=== PATIENT | male | born 1965 | race Caucasian/White ===

== ENCOUNTER 2018-01-13 22:54 | Emergency (ER) | payer BC ==
[~2018-01-13 22:54] MED LIST: Sodium Chloride Irrig Solution 250 ML BOT ONE; Triple Antibiotic Oint 1 GM Packet ONE
[2018-01-14] MEDS ORDERED: Adacel (T-DAP) 0.5 ML VIAL ONE (00:27)
[2018-01-14] MEDS ORDERED: Lidocaine 1% w/Epinephrine 1:100K 20 ML VIAL ONE (00:48)
== END 2018-01-14 01:46 | disposition home or self-care (01) ==
LOC: MADERS 22:54
DX: S51.812A Laceration without foreign body of left forearm, initial encounter (principal); W20.8XXA Other cause of strike by thrown, projected or falling object, initial encounter
CPT/HCPCS: 12034; 90471; 90715; J2001